=== PATIENT | male | born 1990 | race Hispanic/Latino ===

== ENCOUNTER 2022-04-05 20:17 | Emergency (ER) | payer OTHER ==
[2022-04-05 21:53] LABS: SARS-CoV-2 NAA Rapid Test Not Detected (NotDetected)
== END 2022-04-05 22:20 | disposition home or self-care (01) ==
LOC: CSHERS 20:17
DX: B34.9 Viral infection, unspecified (principal); Z20.822 Contact with and (suspected) exposure to COVID-19; Z79.899 Other long term (current) drug therapy
CPT/HCPCS: 99283